=== PATIENT | female | born 2000 | race Caucasian/White ===

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

== ENCOUNTER → 2018-02-03 | Outpatient (CLI) | payer OTHER | LOC: EEVIPCON 07:57 → FIMAGING 07:57 | DX: M25.551 Pain in right hip (principal); M67.851 Other specified disorders of synovium, right hip ==